=== PATIENT | female | born 2000 | race Two or more races ===

== ENCOUNTER 2023-09-11 13:24 | Emergency (ER) | payer OTHER ==
[~2023-09-11] VITALS: Ht 152.4 cm; Wt 54.4 kg
[2023-09-11] MEDS ORDERED: ONDANSETRON HCL 2 MG/ML VIAL IV ONE (15:30)
[2023-09-11] MEDS ORDERED: GUAIFENESIN/DEXTROMETHORPHAN 10ML BLIST.PACK PO ONE (15:30)
[2023-09-11] MEDS ORDERED: CETIRIZINE HCL 5 MG/5 ML ML PO ONE (15:30)
[2023-09-11 15:50] LABS: HEMATOCRIT 38.9 % (36.0-45.00); HEMOGLOBIN 13.4 g/dL (12.0-15.00); MEAN CELL VOLUME 89.8 fL (80.00-100.00); MEAN CORPUSCULAR HEMOGLOBIN 30.9 pg (27.00-32.0); MEAN CORPUSCULAR HGB CONC 34.4 g/dl (32.0-36.0); PLATELET COUNT 153 K/uL (150-450); RED BLOOD COUNT 4.33 M/uL (4.00-6.00); RED CELL DISTRIBUTION WIDTH 12.1 % (11.5-14.5)
[2023-09-11] MEDS ORDERED: OSEL75CA PO (16:56)
[2023-09-11] MEDS ORDERED: ONDANSETRON HCL4 MG PO (16:56)
[2023-09-11] MEDS ORDERED: QC TUSSIN DM L118 ML PO (16:56)
== END 2023-09-11 17:23 ==
LOC: ER 13:25
PROVIDERS: Nurse Practitioner Family
DX: J10.1 Influenza due to other identified influenza virus with other respiratory manifestations (principal); Z20.822 Contact with and (suspected) exposure to COVID-19; E16.2 Hypoglycemia, unspecified